=== PATIENT | male | born 1930 | race Caucasian/White ===

== ENCOUNTER 2018-04-15 19:20 | Emergency (ER) | payer MEDICARE, BC ==
[2018-04-15] MEDS ORDERED: Sodium Chloride 0.9% 500 ML IV ONE (19:32)
--- NOTE | 2018-04-15 19:39 | EDM.PDOC ---
ED HPI GENERAL MEDICAL PROBLEM - General Chief Complaint: Cardiovascular Problem Stated Complaint: [facility] Time Seen by Provider: 04/15/18 19:21 Source of Information: Reports: Patient, EMS, EMS Notes Reviewed History Limitations: Reports: No Limitations - History of Present Illness INITIAL COMMENTS - FREE TEXT/NARRATIVE: Patient brought in by EMS after a near syncopal episode. He was at the [employer] musical at the [employer] dinner and had a near-syncopal episode while sitting. He had just finished eating his big meal and had one glass of wine. He started to feel lightheaded and blurry vision and then laid his head down. He never lost consciousness. He denies any presyncopal chest pain shortness of breath or breathing problems. He had no true syncope. He then had EMS on arrival perform a blood sugar was 145, vital signs were stable, EKG however showed some prolongation of his QRS and therefore brought him in for further evaluation. Monitoring on the way down in the ambulance and there was no ectopy. Patient is actually feeling fine. He was wanting to refuse to come in but he decided to come in as well. His stay otherwise was good. He was feeling well. No fevers chills or sweats. No cough or cold symptoms. No vomiting or diarrhea. He did have some nausea when this episode occurred. That has since resolved. 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 He otherwise has been fairly healthy. No double vision no numbness tingling or focal weakness. No headaches. Onset: Today - Related Data Allergies Allergy/AdvReac Type Severity Reaction Status Date / Time No Known Allergies Allergy Verified 04/15/18 19:25 MDT Home Meds: Home Meds Tamsulosin [Tamsulosin 24 Hr] 0.4 mg PO DAILY 04/15/18 [History] Past Medical History - Past Surgical History GI Surgical History: Reports: Hernia Repair/Other Social & Family History - Tobacco Use Smoking Status *Q: Never Smoker - Caffeine Use Caffeine Use: Reports: Coffee - Recreational Drug Use Recreational Drug Use: No ED ROS GENERAL - Review of Systems Review Of Systems: See Below Constitutional: Denies: Fever, Chills, Diaphoresis HEENT: Reports: Glasses, Vision Change. Denies: Eye Pain, Hearing Loss Respiratory: Denies: Shortness of Breath, Cough Cardiovascular: Denies: Chest Pain, Dyspnea on Exertion, Palpitations, Syncope GI/Abdominal: Reports: Nausea. Denies: Abdominal Pain, Black Stool, Diarrhea, Vomiting : Denies: Dysuria Musculoskeletal: Denies: Neck Pain, Muscle Stiffness Skin: Denies: Rash Neurological: Denies: Confusion, Dizziness, Headache, Numbness, Paresthesia, Tingling, Trouble Speaking, Weakness, Change in Speech, Gait Disturbance Psychiatric: Denies: Anxiety, Confusion ED EXAM, GENERAL - Physical Exam Exam: See Below Exam Limited By: No Limitations General Appearance: Alert, WD/WN, No Apparent Distress Eye Exam: Bilateral Eye: EOMI, PERRL Throat/Mouth: Normal Inspection, Normal Oropharynx Head: Atraumatic Neck: Normal Inspection Respiratory/Chest: No Respiratory Distress, Lungs Clear, Normal Breath Sounds, Chest Non-Tender Cardiovascular: Normal Peripheral Pulses, Regular Rate, Rhythm, No Edema, No Gallop Peripheral Pulses: 2+: Radial (L), Radial (R), Posterior Tibial (L), Posterior Tibial (R), Dorsalis Pedis (L), Dorsalis Pedis (R) GI/Abdominal: Normal Bowel Sounds, Soft, Non-Tender, No Organomegaly, No Distention, No Mass Extremities: No Pedal Edema Neurological: Alert, Oriented, CN II-XII Intact, No Motor/Sensory Deficits, Inattentive Psychiatric: Normal Affect, Normal Mood Skin Exam: Warm, Dry. No: Diaphoretic EKG INTERPRETATION EKG Date: 04/15/18 Time: 20:00 EKG Interpretation Comments: Sinus rhythm rate of 83. Viral 197 ms QRS is 125 ms. Patient has a right bundle branch block pattern, old Q waves inferiorly leads. No other signs of any acute ischemia, no prolonged QT syndrome. Course - Vital Signs Text/Narrative:: Patient had a good day up until after eating a large meal while at the [employer] dinner. He drank 1 alcohol beverage and after finishing his meal he FELT NAUSEATED AND LIGHTHEADED AND FELT LIKE SHE WAS GIVEN A PASS OUT AND LAID HIS HEAD DOWN. 911 WAS CALLED AND THEREFORE CAME TO FURTHER EVALUATE HIM. PATIENT DENIED HAVING ANY PRE-SYNCOPAL/NEAR SYNCOPAL CHEST PAIN SHORTNESS OF BREATH OR BREATHING PROBLEMS. NO STROKELIKE SYMPTOMS. HIS BLOOD SUGAR WAS STABLE AT 145. PATIENT CURRENTLY IS ASYMPTOMATIC AND FEELING WELL. WE'LL SEND A EKG FOR REPEAT, DOUBT ACUTE CORONARY SYNDROME, SEEMS VERY UNLIKELY A PULMONARY EMBOLISM AND THIS IS SEEMING TO BE MORE LIKE ORTHOSTASIS AND/OR VASOVAGAL REACTION AFTER EATING A LARGE MEAL WITH ALCOHOL. If his orthostatics and overall lab evaluation is unremarkable and is a patient will go home. Last Recorded V/S: Last Vital Signs Temp 97.6 F 04/15/18 19:23 MDT Pulse 85 04/15/18 19:23 MDT Resp 16 04/15/18 19:23 MDT BP 138/58 L 04/15/18 19:23 MDT Pulse Ox 97 04/15/18 19:23 MDT Orthostatic Blood Pressure [ 120/65 Standing] Orthostatic Blood Pressure [ 124/63 Sitting] Orthostatic Blood Pressure [ 109/61 Supine] - Orders/Labs/Meds Orders: Active Orders 24 hr Category Date Time Status Cardiac Monitoring [RC] . DIRECTED Care 04/15/18 19:32 Active Communication Order [RC] STAT Care 04/15/18 19:32 Active Communication Order [RC] STAT Care 04/15/18 19:33 Active EKG Documentation Completion [RC] STAT Care 04/15/18 19:31 Active UA W/MICROSCOPIC [URIN] Stat Lab 04/15/18 20:15 Ordered Labs: Laboratory Tests 04/15/18 04/15/18 04/15/18 Range/Units 19:54 MDT 19:54 MDT 20:15 MDT WBC 6.12 (4.23-9.07) K/mm3 RBC 4.55 L (4.63-6.08) M/mm3 Hgb 15.1 (13.7-17.5) gm/L Hct 45.2 (40.1-51.0) % MCV 99.3 H (79.0-92.2) fl MCH 33.2 H (25.7-32.2) pg MCHC 33.4 (32.2-35.5) g/dl RDW Std Deviation 49.7 H (35.1-43.9) fL Plt Count 221 (163-337) K/mm3 MPV 9.6 (9.4-12.3) fl Neut % (Auto) 69.6 H (34.0-67.9) % Lymph % (Auto) 17.5 L (21.8-53.1) % [place] % (Auto) 9.6 (5.3-12.2) % Eos % (Auto) 1.6 (0.8-7.0) Baso % (Auto) 1.5 H (0.1-1.2) % Neut # (Auto) 4.26 (1.78-5.38) K/mm3 Lymph # (Auto) 1.07 L (1.32-3.57) K/mm3 [place] # (Auto) 0.59 (0.30-0.82) K/mm3 Eos # (Auto) 0.10 (0.04-0.54) K/mm3 Baso # (Auto) 0.09 H (0.01-0.08) K/mm3 Sodium 141 (136-145) mEq/L Potassium 4.3 (3.5-5.1) mEq/L Chloride 105 (98-107) mEq/L Carbon Dioxide 27 (21-32) mEq/L Anion Gap 13.3 (5-15) BUN 17 (7-18) mg/dL Creatinine 1.5 H (0.7-1.3) mg/dL Est Cr Clr Drug Dosing 36.73 mL/min Estimated GFR (MDRD) 44 (>60) mL/min BUN/Creatinine Ratio 11.3 L (14-18) Glucose 152 H (83-115) mg/dL Calcium 8.8 (8.5-10.1) mg/dL Total Bilirubin 0.3 (0.2-1.0) mg/dL AST 18 (15-37) U/L ALT 21 (16-63) U/L Alkaline Phosphatase 83 (46-116) U/L Total Protein 6.6 (6.4-8.2) g/dl Albumin 3.3 L (3.4-5.0) g/dl Globulin 3.3 gm/dL Albumin/Globulin Ratio 1.0 (1-2) Urine Color Yellow (Yellow) Urine Appearance Slt cloudy H (Clear) Urine pH 6.0 (5.0-8.0) Ur Specific [place] > or = 1.030 (1.005-1.030) Urine Protein 1+ H (Negative) Urine Glucose (UA) Negative (Negative) Urine Ketones Negative (Negative) Urine Occult Blood Negative (Negative) Urine Nitrite Negative (Negative) Urine Bilirubin Negative (Negative) Urine Urobilinogen 0.2 (0.2-1.0) Ur Leukocyte Esterase Negative (Negative) Ethyl Alcohol 0.00 (0.00) gm% Meds: Medications Discontinued Medications Generic Name Dose Route Start Last Admin Trade Name Osiris PRN Reason Stop Dose Admin Sodium Chloride 500 mls @ 500 mls/hr 04/15/18 19:32 MDT 04/15/18 20:03 MDT Normal Saline IV 04/15/18 20:31 MDT 500 mls/hr .BOLUS ONE Administration - Re-Assessments/Exams Free Text/Narrative Re-Assessment/Exam: 04/15/18 20:37 Patient is doing well after his fluids. Reviewed the results of his laboratory findings including an elevated creatinine, suspect gravity of the urine at 1.030 and otherwise no anemia and no elevated white blood cell count, blood sugar 155. He's tolerated standing and ambulating without recurrent symptoms. I suspect that talking with his that he has not been drinking much fluid as he's had benign prostatic hypertrophy and has to wake up a lot to urinate especially at night. He has however just started Flomax 2 days worth and notes that he has had improved urine output at night before going to bed and not waking up and therefore hopefully be drinking more fluids. Otherwise doubt acute coronary syndrome no prolonged QT syndrome doubt stroke, no hypoglycemia, electrolyte abnormality. We'll discharge patient home, drink plenty fluids follow-up and return cautions given Departure - Departure Time of Disposition: 20:38 Disposition: Home, Self-Care 01 Condition: Good Clinical Impression: Vasovagal near syncope, Dehydration, Right bundle branch block Instructions: Near-Syncope, [id number], Dehydration, Adult, [id number] Referrals: PCP,Not In Area [Primary Care Provider] - Forms: ED Department Discharge Additional Instructions: Recheck with your primary care provider this week, drink plenty of water and fluids. Return if any chest pain recurrent fainting episodes, dizzy, headaches, weakness, worse - My Orders Last 24 Hours: My Active Orders 04/15/18 19:31 EKG Documentation Completion [RC] STAT 04/15/18 19:32 Cardiac Monitoring [RC] . DIRECTED Communication Order [RC] STAT 04/15/18 19:33 Communication Order [RC] STAT 04/15/18 20:15 UA W/MICROSCOPIC [URIN] Stat - Assessment/Plan Last 24 Hours: My Active Orders 04/15/18 19:31 EKG Documentation Completion [RC] STAT 04/15/18 19:32 Cardiac Monitoring [RC] . DIRECTED Communication Order [RC] STAT 04/15/18 19:33 Communication Order [RC] STAT 04/15/18 20:15 UA W/MICROSCOPIC [URIN] Stat
== END 2018-04-15 20:50 | disposition home or self-care (01) ==
LOC: JD.ED 19:20
DX: E86.0 Dehydration (principal); I45.10 Unspecified right bundle-branch block; Z79.899 Other long term (current) drug therapy
CPT/HCPCS: 36415; 80053; 81001; 85025; 93005; 96360; 99285; G0480; J7040